=== PATIENT | female | born 1995 | race Caucasian/White ===

== ENCOUNTER 2020-09-04 07:45 | Inpatient (IN) | payer OTHER ==
[~2020-09-04] VITALS: Ht 162.6 cm; Wt 49.9 kg
[2020-09-04] MEDS ORDERED: TENORMIN25 MG PO (14:18)
[2020-09-04] MEDS ORDERED: TAPAZOLE10 MG PO (14:19)
[2020-09-04] MEDS ORDERED: NASAL MIST126 ML (14:19)
== END 2020-09-08 10:19 | disposition home or self-care (01) | DRG 627 ==
LOC: O/R 09-07 05:44 → SURH 09-07 07:45
PROVIDERS: ADMIT Surgery; ATTEND Surgery
PROC: 0GTH0ZZ Resection of Right Thyroid Gland Lobe, Open Approach (ICD-10-PCS; 2020-09-07)
PROC: 07B20ZX Excision of Left Neck Lymphatic, Open Approach, Diagnostic (ICD-10-PCS; 2020-09-07)
PROC: 0GTG0ZZ Resection of Left Thyroid Gland Lobe, Open Approach (ICD-10-PCS; principal; 2020-09-07 11:00)
DX: E05.00 Thyrotoxicosis with diffuse goiter without thyrotoxic crisis or storm (principal)